=== PATIENT | female | born 1940 | race Caucasian/White ===

== ENCOUNTER 2016-06-17 15:22 | Inpatient (IN) | payer MEDICARE ==
[~2016-06-17] VITALS: Ht 162.6 cm; Wt 78.0 kg
[2016-06-17 15:25] VITALS: BP 201/83; PULSE 50; RESP 15; TEMP 97.9; O2SAT 94
[2016-06-17 15:49] VITALS: PULSE 55; RESP 15; O2SAT 98
[2016-06-17] MEDS ORDERED: ANSAID PO (15:54)
[2016-06-17] MEDS ORDERED: TYLETAB34 PO (15:54)
[2016-06-17] MEDS ORDERED: ROSU5 PO (15:54)
[2016-06-17] MEDS ORDERED: GABA600T PO (15:54)
[2016-06-17] MEDS ORDERED: [UNRECOGNIZED DRUG - CODE] PO (15:54)
[2016-06-17] MEDS ORDERED: PREV30CA11 PO (15:54)
[2016-06-17] MEDS ORDERED: TOPR25TA PO (15:56)
--- NOTE | 2016-06-17 15:59 | PD ---
HPI . Irregular heartbeat Chief Complaint: Cardiac Complaint Time Seen by Provider: 15:39 Travel History International Travel<30 days: No Contact w/Intl Traveler<30days: No Traveled to known affect area: No History of Present Illness HPI Patient presents along with her , who states that he is a physician, complaining of an irregular heartbeat today. She reports that she fell while was she was going to the bathroom. She had an irregular heartbeat at that time which apparently caused her to be very weak causing the fall. She and her then decided that she needed to come to the hospital to get checked. She became very weak and fell again in the garage on a concrete floor. She did strike her head. She did not lose consciousness. She and the state that she takes Eliquis when necessary for irregular heartbeat. She has had a normal heartbeat for the last 8 months and has not been taking the Eliquis. She took it today. In addition to the irregular heartbeat and near syncope with associated head contusion, her would like for her to be evaluated for ascites. He is also requesting evaluation for possible hypothyroidism. He is further requesting that she be evaluated for breast cancer or bladder cancer. He states that she can't urinate without pressing on her urethra. She is also complaining with her chronic neck pain. They are from [place], [place]. The patient's only complaint at this time is that she feels shaky. She no longer has the sensation of an irregular heartbeat. PFSH Past Medical History Hx Anticoagulant Therapy: Yes Atrial Fibrillation: Yes Cardiovascular Problems: Yes Medical other: Yes ("PLATLETS DONT WORK", CHRONIC NECK PAIN) ?: Not Social History Alcohol Use: Yes (2 oz every day ) Tobacco Use: No Substance Use: No Allergies-Medications (Allergen,Severity, Reaction): Coded Allergies: Lisinopril (Verified Allergy, Unknown, 06/17/16) SSRI-Serotonin Reuptake Inhib (Verified Allergy, Unknown, 06/17/16) Reported Meds & Prescriptions Reported Meds & Active Scripts Active Reported Eliquis (Apixaban) 2.5 Mg Tab 2.5 Mg PO BID Toprol XL (Metoprolol Succinate) 25 Mg Tab 12.5 Mg PO DAILY PRN [Ansaid] 100 Mg PO DAILY PRN Gabapentin 600 Mg Tab 600 Mg PO TID Crestor (Rosuvastatin Calcium) 5 Mg Tab 5 Mg PO DAILY Tylenol-Codeine #3 (Acetaminophen-Codeine) 300-30 mg Tab 1-2 Tab PO Q6H PRN Prevacid (Lansoprazole) 30 Mg Capdr 30 Mg PO DAILY Norpace (Disopyramide Phosphate) 100 Mg Cap 100 Mg PO Q6H Review of Systems Except as stated in HPI: all other systems reviewed are Neg General / Constitutional: Positive: Weight Gain (6 pounds) Eyes: No: Blurred Vision HENT: Positive: Other Cardiovascular: Positive: Palpitations (posterior scalp contusion) Respiratory: No: Shortness of Breath Gastrointestinal: Positive: Other (bloating) Musculoskeletal: Positive: Other (chronic neck pain) Neurologic: Positive: Weakness Physical Exam Narrative GENERAL: This is an elderly woman who is in no acute distress. SKIN: Warm and dry. She has a bruise on her left posterior shoulder. HEAD: Bruise to the right posterior scalp. Normocephalic. EYES: Pupils equal and round. ENT: No nasal bleeding or discharge. Mucous membranes pink and moist. NECK: Trachea midline. She has a pretty long vertical surgical scar over her C- spine. CARDIOVASCULAR: She sounds like she is in a sinus rhythm with PVCs. It sounds like she is having 2 sinus beats followed by a PVC. Harsh systolic murmur. RESPIRATORY: No accessory muscle use. Lungs are clear with full air movement throughout. GASTROINTESTINAL: Abdomen soft, non-tender, nondistended. MUSCULOSKELETAL: No obvious deformities. No edema. NEUROLOGICAL: Awake and alert. No obvious cranial nerve deficits. Motor grossly within normal limits. Normal speech. PSYCHIATRIC: Appropriate mood and affect; insight and judgment normal. Data Data Last Documented VS Vital Signs Date Time Temp Pulse Resp B/P Pulse Ox O2 Delivery O2 Flow Rate FiO2 06/17/16 18:49 40 17 194/76 96 Room Air 06/17/16 15:25 97.9 Orders Electrocardiogram (06/17/16 15:47) Ckmb (Isoenzyme) Profile (06/17/16 15:47) Complete Blood Count With Diff (06/17/16 15:47) Comprehensive Metabolic Panel (06/17/16 15:47) D-Dimer (06/17/16 15:47) Magnesium (Mg) (06/17/16 15:47) Prothrombin Time / Inr (Pt) (06/17/16 15:47) Act Partial Throm Time (Ptt) (06/17/16 15:47) Troponin I (06/17/16 15:47) Chest, Single Ap (06/17/16 15:47) Ecg Monitoring (06/17/16 15:47) Bilateral Bp Monitoring (06/17/16 15:47) Iv Access Insert/Monitor (06/17/16 15:47) Oximetry (06/17/16 15:47) Oxygen Administration (06/17/16 15:47) Sodium Chloride 0.9% Flush (Ns Flush) (06/17/16 16:00) Thyroid Stimulating Hormone (06/17/16 15:47) Free Thyroxine (T4) (06/17/16 15:47) Ct Brain W/O Iv Contrast(Rout) (06/17/16 16:28) Ct Abd/Pel W Iv Contrast(Rout) (06/17/16 16:47) CKMB (06/17/16 16:00) CKMB% (06/17/16 16:00) Iohexol 350 Inj (Omnipaque 350 Inj) (06/17/16 17:50) Sodium Chlor 0.9% 1000 Ml Inj (Ns 1000 M (06/17/16 18:30) Ct Pulmonary Angiogram (06/17/16 18:53) Enoxaparin Inj (Lovenox Inj) (06/17/16 19:00) Urinalysis - C+S If Indicated (06/17/16 19:00) Admit To Inpatient (06/17/16 ) Vital Signs (Adult) Q4H (06/17/16 19:23) Activity Oob With Assistance (06/17/16 19:23) Telescope Maintenance / Telemetry .CONTINUOUS (06/17/16 19:23) Intake + Output PURVI.QSHIFT (06/17/16 19:23) Diet Heart Healthy (06/18/16 Breakfast) Sodium Chlor 0.9% 1000 Ml Inj (Ns 1000 M (06/17/16 19:23) Sodium Chloride 0.9% Flush (Ns Flush) (06/17/16 19:30) Sodium Chloride 0.9% Flush (Ns Flush) (06/17/16 21:00) Ondansetron Inj (Zofran Inj) (06/17/16 19:30) Bisacodyl Supp (Dulcolax Supp) (06/17/16 19:30) Comprehensive Metabolic Panel (06/18/16 06:00) Complete Blood Count With Diff (06/18/16 06:00) Creatine Kinase (Cpk) (06/18/16 00:00) Creatine Kinase (Cpk) (06/18/16 06:00) Troponin I (06/18/16 00:00) Troponin I (06/18/16 06:00) Pharmacologic Contraindication (06/17/16 19:23) Acetaminophen (Tylenol) (06/17/16 19:30) Acetamin-Hydrocod 325-5 Mg ([place] 5-325 (06/17/16 19:30) Morphine Inj (Morphine Inj) (06/17/16 19:30) Inpatient Certification (06/17/16 ) Apixaban (Eliquis) (06/17/16 21:00) Gabapentin (Neurontin) (06/18/16 09:00) (Nf) Disopyramide (Norpace) (06/17/16 19:30) (Nf) Rosuvastatin (Crestor) (06/18/16 09:00) Labs Laboratory Tests Test 06/17/16 16:00 White Blood Count 6.8 TH/MM3 Red Blood Count 2.88 MIL/MM3 Hemoglobin 9.0 GM/DL Hematocrit 26.1 % Mean Corpuscular Volume 90.9 FL Mean Corpuscular Hemoglobin 31.5 PG Mean Corpuscular Hemoglobin 34.6 % Concent Red Cell Distribution Width 12.8 % Platelet Count 183 TH/MM3 Mean Platelet Volume 8.0 FL Neutrophils (%) (Auto) 66.7 % Lymphocytes (%) (Auto) 22.8 % Monocytes (%) (Auto) 8.8 % Eosinophils (%) (Auto) 1.1 % Basophils (%) (Auto) 0.6 % Neutrophils # (Auto) 4.5 TH/MM3 Lymphocytes # (Auto) 1.5 TH/MM3 Monocytes # (Auto) 0.6 TH/MM3 Eosinophils # (Auto) 0.1 TH/MM3 Basophils # (Auto) 0.0 TH/MM3 CBC Comment DIFF FINAL Differential Comment Prothrombin Time 11.0 SEC Prothromb Time International 1.0 RATIO Ratio Activated Partial 29.4 SEC Thromboplast Time D-Dimer Quantitative (PE/DVT) 1.80 MG/L FEU Sodium Level 119 MEQ/L Potassium Level 5.5 MEQ/L Chloride Level 85 MEQ/L Carbon Dioxide Level 24.7 MEQ/L Anion Gap 9 MEQ/L Blood Urea Nitrogen 25 MG/DL Creatinine 1.22 MG/DL Estimat Glomerular Filtration 43 ML/MIN Rate Random Glucose 84 MG/DL Calcium Level 8.7 MG/DL Magnesium Level 2.4 MG/DL Total Bilirubin 0.3 MG/DL Aspartate Amino Transf 38 U/L (AST/SGOT) Alanine Aminotransferase 38 U/L (ALT/SGPT) Alkaline Phosphatase 65 U/L Total Creatine Kinase 289 U/L Creatine Kinase MB 7.0 NG/ML Creatine Kinase MB % 2.4 % Troponin I 0.03 NG/ML Total Protein 7.0 GM/DL Albumin 3.7 GM/DL Free Thyroxine 0.83 NG/DL Thyroid Stimulating Hormone 3.940 uIU/ML [address] [place] [address] Medical Decision Making Medical Screen Exam Complete: Yes Emergency Medical Condition: Yes Medical Record Reviewed: Yes (unfortunately, this patient has no old records here.) Interpretation(s) I cannot really determine the etiology of her rhythm. It may be idioventricular at the computer is reading it as atrial fibrillation with a slow ventricular response she does not have any ST segment elevation or depression. She has no old EKGs for comparison. Differential Diagnosis My differential diagnosis of syncope includes but is not limited to cardiac arrhythmia, hypovolemia, anemia, neurological catastrophe, vasovagal response Narrative Course Patient presents for evaluation of an irregular heartbeat and extreme weakness causing to falls. No loss of consciousness. CBC has an H&H of 9.0 and 26.1. Chest x-ray is negative to the radiologist's interpretation. Chest x-ray was independently viewed by me. Chemistries are remarkable for sodium of 119, potassium 5.5, chloride of 85 and bicarbonate of 25. BUN/creat is 25/1.22. Cardiac enzymes are negative. Free T4 is 0.83 which is normal. TSH is 3.94 which is slightly elevated. D-dimer is 1.80. CT for PE has subsequently been ordered. Unfortunately, the patient has already been given IV contrast for abd/pelvic CT. Radiology has informed me that they cannot give the patient any more contrast today. She needs to be admitted for her hyponatremia anyway. She can be further evaluated for the elevated d-dimer in [address] head is negative. CT abdomen and pelvis is negative. Critical Care Narrative Aggregate critical care time was [-] minutes. Time to perform other separately billable procedures was not included in the critical care time. My time did not include minutes spent treating any other patients simultaneously or on activities that did not directly contribute to the patient's treatment. The services I provided to this patient were to treat and/or prevent clinically significant deterioration that could result in: Fatal cardiac dysrhythmia, cardiovascular collapse, neurological sequelae of an undiagnosed head injury I provided critical care services requiring my management, as noted below: Chart data review, documentation time, medication orders and management, vital sign assessments/reviewing monitor data, ordering and reviewing lab tests, ordering and interpreting/reviewing x-rays and diagnostic studies, care of the patient and discussion of the patient with the admitting physicians. Diagnosis Primary Impression: Near syncope Additional Impressions: Hyponatremia Hyperkalemia Elevated d-dimer Admitting Information Admitting Physician Requests: Admit Condition: Stable Suyapa Ortega MD Jun 17, 2016 15:59
[2016-06-17] MEDS ORDERED: SODIUM CHLORIDE 0.9% FLUSH 5 ML FLUSH IVF PRN (16:00)
[2016-06-17 16:17] LABS: AUTOMATED NEUTROPHIL # 4.5 TH/MM3 (1.8-7.7); BASOPHIL % 0.6 % (0.0-2.0); EOSINOPHIL # 0.1 TH/MM3 (0-0.4); EOSINOPHIL % 1.1 % (0.0-4.0); HEMATOCRIT 26.1 % (35.0-46.0); HEMO FLAGS DIFF FINAL; LYMPH % 22.8 % (9.0-44.0); LYMPHOCYTE # 1.5 TH/MM3 (1.0-4.8); MEAN CELL VOLUME 90.9 FL (80.0-100.0); MEAN CORPUSCULAR HEMOGLOBIN 31.5 PG (27.0-34.0); MEAN CORPUSCULAR HGB CONC 34.6 % (32.0-36.0); MONO % 8.8 % (0.0-8.0); NEUT % 66.7 % (16.0-70.0); PLATELET COUNT 183 TH/MM3 (150-450); RED BLOOD COUNT 2.88 MIL/MM3 (4.00-5.30); RED CELL DISTRIBUTION WIDTH 12.8 % (11.6-17.2); WHITE BLOOD COUNT 6.8 TH/MM3 (4.0-11.0)
--- NOTE | 2016-06-17 16:20 | RADRPT ---
EXAM DATE/TIME: 06/17/2016 16:02 [facility] COMPARISON: No previous studies available for comparison. INDICATIONS : Chest pain starting today MEDICAL HISTORY : None. SURGICAL HISTORY : None. ENCOUNTER: Initial ACUITY: 1 day PAIN SCORE: 5/10 LOCATION: Bilateral chest FINDINGS: A single view of the chest demonstrates the lungs to be symmetrically aerated without evidence of mas s, infiltrate or effusion. The cardiomediastinal contours are unremarkable. Osseous structures are intact. CONCLUSION: No acute disease. Mateo Becker MD on June 17, 2016 at 16:19 Board Certified Radiologist. This report was verified electronically.
[2016-06-17 16:35] LABS: APTT (PATIENT) 29.4 SEC (24.3-30.1)
[2016-06-17 16:48] LABS: ALT (GPT) 38 U/L (10-53); ANION GAP 9 MEQ/L (5-15); AST (GOT) 38 U/L (15-37); BICARBONATE 24.7 MEQ/L (21.0-32.0); BLOOD UREA NITROGEN 25 MG/DL (7-18); CHLORIDE 85 MEQ/L (98-107); GLOMERULAR FILTRATION RATE 43 ML/MIN (>89); MAGNESIUM 2.4 MG/DL (1.5-2.5); POTASSIUM 5.5 MEQ/L (3.5-5.1)
[2016-06-17 16:55] LABS: ALKALINE PHOSPHATASE 65 U/L (45-117); CREATINE KINASE 289 U/L (26-192); FREE T4 0.83 NG/DL (0.76-1.46); TOTAL BILIRUBIN ADULT 0.3 MG/DL (0.2-1.0)
[2016-06-17 17:02] LABS: SODIUM (NA) 119 MEQ/L (136-145)
[2016-06-17 17:10] VITALS: BP 117/79; PULSE 53; RESP 15; O2SAT 98
--- NOTE | 2016-06-17 17:48 | RADRPT ---
EXAM DATE/TIME: 06/17/2016 17:37 [facility] COMPARISON: No previous studies available for comparison. INDICATIONS : Fall with head trauma. RADIATION DOSE: 60.87 CTDIvol (mGy) MEDICAL HISTORY : Cardiovascular disease. SURGICAL HISTORY : Cervical laminectomy. ENCOUNTER: Initial ACUITY: 1 day PAIN SCALE: 0/10 LOCATION: cranial TECHNIQUE: Multiple contiguous axial images were obtained of the head. Using automated exposure control and adj ustment of the mA and/or kV according to patient size, radiation dose was kept as low as reasonably a chievable to obtain optimal diagnostic quality images. FINDINGS: CEREBRUM: The ventricles are normal for age. No evidence of midline shift, mass lesion, hemorrhage or acute in farction. No extra-axial fluid collections are seen. POSTERIOR FOSSA: The cerebellum and brainstem are intact. The 4th ventricle is midline. The cerebellopontine angle i s unremarkable. EXTRACRANIAL: The visualized portion of the orbits is intact. SKULL: The calvaria is intact. No evidence of skull fracture. Superficial soft tissue swelling hematoma pos terior high right parietal region towards the vertex CONCLUSION: Intact calvarium with normal intracranial contents. Mateo Becker MD on June 17, 2016 at 17:46 Board Certified Radiologist. This report was verified electronically.
[2016-06-17] MEDS ORDERED: IOHEXOL 350 MG/ML 10 ML VIAL (for RAD DIAG) IV ONE (17:50)
[2016-06-17] MEDS ORDERED: SODIUM CHLOR 0.9% 1000 ML INJ 1,000 ML IV ONE (18:30)
--- NOTE | 2016-06-17 18:33 | RADRPT ---
EXAM DATE/TIME: 06/17/2016 17:43 [facility] COMPARISON: No previous studies available for comparison. INDICATIONS : Abdominal pain and difficulty urinating IV CONTRAST: 71 cc Omnipaque 350 (iohexol) IV ORAL CONTRAST: No oral contrast ingested. RADIATION DOSE: 11.88 CTDIvol (mGy) MEDICAL HISTORY : Ascites. SURGICAL HISTORY : None documented. ENCOUNTER: Initial ACUITY: 1 day PAIN SCALE: 0/10 LOCATION: lower quadrant TECHNIQUE: Volumetric scanning of the abdomen and pelvis was performed. Using automated exposure control and ad justment of the mA and/or kV according to patient size, radiation dose was kept as low as reasonably achievable to obtain optimal diagnostic quality images. FINDINGS: CT Abdomen: The liver, spleen, pancreas, kidneys, adrenals are unremarkable. There is no evidence for any appreciable pathological adenopathy, free fluid, or bowel obstruction. CT pelvis: There is no evidence for mass, abscess formation, or any significant adenopathy within the pelvis. There is prominent fat bilaterally in the patient's thigh partially extending insinuating be tween muscular structures of no clinical significance. CONCLUSION: Essentially unremarkable study. Marilu Ellis MD on June 17, 2016 at 18:29 Board Certified Radiologist. This report was verified electronically.
[2016-06-17 18:49] VITALS: BP 194/76; PULSE 40; RESP 17; O2SAT 96
[2016-06-17] MEDS ORDERED: ENOXAPARIN SODIUM 80 MG/0.8 ML SYRINGE SQ ONE (19:00)
[2016-06-17] MEDS ORDERED: APIX2.5T PO (19:12)
--- NOTE | 2016-06-17 19:26 | HHI.HP ---
[facility] Service [facility] Primary Care Physician Non-Staff Admission Diagnosis Diagnoses: (1) Fall Diagnosis: Principal (2) Hyperkalemia Diagnosis: Principal (3) Hyponatremia Diagnosis: Principal (4) Elevated d-dimer Diagnosis: Principal (5) A-fib Diagnosis: Principal (6) Renal insufficiency Diagnosis: Principal Travel History International Travel<30 Days: No Contact w/Intl Traveler <30 Da: No Traveled to Known Affected Are: No History of Present Illness This is a 75-year-old female with a PMH of HTN and A. fib who was brought to the ER by after fall x2 earlier today. History provided mostly by who states he is an Internal Medicine doctor and is the one primarily managing her medical problems. 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 Per , pt had complaints of dizziness/lightheadedness earlier today, noted to have irregular pulse at which time he gave her a dose of Eliquis 2.5mg. Was walking to the car w/ her walker on her way to ER when her "legs gave out" and she had fall, + head trauma but no LOC. On arrival, BP 201/83, HR 50, O2 sat 94% on RA. Currently BP 179/79, HR 73. Chemistry essentially unremarkable. Hgb 9.0, baseline unknown. Na 119. K+ 5.5. Creatinine 1.22, no previous labs for comparison. Trop 0.03. CPK 289. TSH 3.940. D-Dimer 1.80. U/a negative. CT Head negative for acute findings. CXR negative. CT Abd/Pelvis requested by as pt had reported complaints of abd pain earlier, CT Abd/Pelvis negative. CTA Pulm ordered, however not completed as pt has already received contrast w/ CT Abd/Pelvis. CTA Pulm scheduled for tomorrow. Review of Systems Other ROS: 14 point review of systems otherwise negative. Past Family Social History Past Medical History PMH: HTN and A. fib Past Surgical History PAST SURGICAL HISTORY: Cervical Laminectomy, Bilateral Foot Surgery Allergies: Coded Allergies: Lisinopril (Verified Allergy, Unknown, 06/17/16) SSRI-Serotonin Reuptake Inhib (Verified Allergy, Unknown, 06/17/16) Family History PAST FAMILY HISTORY: Reviewed. No h/o DM or CAD Social History PAST SOCIAL HISTORY: Drinks 2 ounces of alcohol daily. Negative for tobacco or drugs. Physical Exam Vital Signs Vital Signs Date Time Temp Pulse Resp B/P Pulse Ox O2 Delivery O2 Flow Rate FiO2 06/17/16 18:49 40 17 194/76 96 Room Air 06/17/16 17:10 53 15 117/79 98 Room Air 06/17/16 15:49 98 Room Air 06/17/16 15:49 98 Room Air 06/17/16 15:49 55 15 98 Room Air 06/17/16 15:45 16 06/17/16 15:25 97.9 50 15 201/83 94 Physical Exam PE: GENERAL: Elderly white female in no acute distress. at bedside. HEENT: PERRLA, EOMI. No scleral icterus or conjunctival pallor. No lid lag or facial droop. CARDIOVASCULAR: Currently in NSR. Regular rate and rhythm. No obvious murmurs to auscultation. No chest tenderness to palpation. RESPIRATORY: No obvious rhonchi or wheezing. Clear to auscultation. Breath sounds equal bilaterally. GASTROINTESTINAL: Abdomen soft, non-tender, nondistended. BS normal. MUSCULOSKELETAL: Extremities without clubbing, cyanosis, or edema. No obvious deformities. NEUROLOGICAL: Awake, alert and oriented x4. No focal neurologic deficits. Moving both upper and lower extremities spontaneously. Laboratory Laboratory Tests Test 06/17/16 16:00 White Blood Count 6.8 Red Blood Count 2.88 Hemoglobin 9.0 Hematocrit 26.1 Mean Corpuscular Volume 90.9 Mean Corpuscular Hemoglobin 31.5 Mean Corpuscular Hemoglobin 34.6 Concent Red Cell Distribution Width 12.8 Platelet Count 183 Mean Platelet Volume 8.0 Neutrophils (%) (Auto) 66.7 Lymphocytes (%) (Auto) 22.8 Monocytes (%) (Auto) 8.8 Eosinophils (%) (Auto) 1.1 Basophils (%) (Auto) 0.6 Neutrophils # (Auto) 4.5 Lymphocytes # (Auto) 1.5 Monocytes # (Auto) 0.6 Eosinophils # (Auto) 0.1 Basophils # (Auto) 0.0 CBC Comment DIFF FINAL Differential Comment Prothrombin Time 11.0 Prothromb Time International 1.0 Ratio Activated Partial 29.4 Thromboplast Time D-Dimer Quantitative (PE/DVT) 1.80 Sodium Level 119 Potassium Level 5.5 Chloride Level 85 Carbon Dioxide Level 24.7 Anion Gap 9 Blood Urea Nitrogen 25 Creatinine 1.22 Estimat Glomerular Filtration 43 Rate Random Glucose 84 Calcium Level 8.7 Magnesium Level 2.4 Total Bilirubin 0.3 Aspartate Amino Transf 38 (AST/SGOT) Alanine Aminotransferase 38 (ALT/SGPT) Alkaline Phosphatase 65 Total Creatine Kinase 289 Creatine Kinase MB 7.0 Creatine Kinase MB % 2.4 Troponin I 0.03 Total Protein 7.0 Albumin 3.7 Free Thyroxine 0.83 Thyroid Stimulating Hormone 3.940 3rd Gen Result Diagram: 06/17/16 1600 06/17/16 1600 Assessment and Plan Problem List: (1) Fall ICD Code: W19.XXXA Status: Acute (2) Hyponatremia ICD Code: E87.1 Status: Acute (3) Hyperkalemia ICD Code: E87.5 Status: Acute (4) Elevated d-dimer ICD Code: R79.89 Status: Acute (5) Renal insufficiency ICD Code: N28.9 Status: Acute (6) A-fib ICD Code: I48.91 Status: Acute Assessment and Plan A/P: 1. Fall: x2 today, +head trauma, no LOC reported, lightheadedness/dizziness prior to fall. CT Head w/ no acute findings, images reviewed by me. Likely vasovagal. IVF for hydration. 2. Hyponatremia: Na 119, no previous labs for comparison. Not on medications to cause hyponatremia. IVF for hydration. Check U/a, check Urine Na/Cl/K. Repeat labs to monitor. No mental status changes. 3. Hyperkalemia: K+ 5.5. No EKG changes. Place on telemetry, repeat labs 4. Elevated D-dimer: Likely related to fall, no obvious infectious etiology. CTA Pulm ordered, however unable to complete as pt had CT Abd/Pelvis w/ contrast , CTA Pulm scheduled for am. No hypoxia, O2 sat normal. 5. Renal Insufficiency: Creatinine 1.22, no previous labs for comparison. Normal renal function per . IVF, repeat labs in am. 6. A-fib: H/o Ablation, off Eliquis for approx 8 months, noted to have irregular heartbeat by earlier today, given Eliquis 2.5mg x1 prior to ER. Will resume Eliquis and Norpace. Currently in NSR. Follows w/ [employer] in [place] where they live the majority of the year, no local [employer]. Will consult Cardiology for further recommendations. 7. DVT Prophylaxis: On Eliquis 8. Social work for d/c planning as needed. 9. Case discussed w/ ER physician at length. Physician Certification 2 Midnight Certification Type: Admission for Inpatient Services Order for Inpatient Services The services are ordered in accordance with Medicare regulations or non- Medicare payer requirements, as applicable. In the case of services not specified as inpatient-only, they are appropriately provided as inpatient services in accordance with the 2-midnight benchmark. Estimated LOS (days): 2 days is the estimated time the patient will need to remain in the hospital, assuming treatment plan goals are met and no additional complications. Post-Hospital Plan: Not yet determined Makenna Ferguson MD Jun 17, 2016 19:26
[2016-06-17] MEDS ORDERED: ACETAMINOPHEN 325 MG TAB PO PRN (19:30)
[2016-06-17] MEDS ORDERED: ONDANSETRON HCL 4 MG/2 ML VIAL IVP PRN (19:30)
[2016-06-17] MEDS ORDERED: BISACODYL 10 MG SUPP PR PRN (19:30)
[2016-06-17] MEDS ORDERED: MORPHINE SULFATE 4 MG/ML INJ IV PRN (19:30)
[2016-06-17] MEDS ORDERED: SODIUM CHLORIDE 0.9% FLUSH 5 ML FLUSH FLUSH PRN (19:30)
[2016-06-17 19:34] VITALS: BP 179/79; PULSE 73; RESP 16; O2SAT 97
[2016-06-17 19:45] LABS: BLOOD, URINE NEG (NEG); COMMENT (UR) CULT NOT INDICATED; CULTURE IF INDICATED CULT NOT INDICATED; GLUCOSE,URINE NEG (NEG); KETONE, URINE NEG (NEG); NITRITE,URINE NEG (NEG); PH, URINE 7.5 (5.0-8.5); SQUAMOUS EPITHELIAL CELL URINE 1 /hpf (0-5); URINE COLOR COLORLESS (YELLW/STRAW)
[2016-06-17 20:26] LABS: FREE T3 1.92 PG/ML (2.18-3.98); FREE T4 0.84 NG/DL (0.76-1.46)
[2016-06-17] MEDS: APIXABAN 2.5 MG TABLET PO SCH (21:50)
[2016-06-17] MEDS: ACETAMINOPHEN/HYDROcodone 325 MG/5 MG TAB PO PRN (21:51)
[2016-06-17] MEDS: SODIUM CHLORIDE 0.9% FLUSH 5 ML FLUSH FLUSH SCH (21:55)
[2016-06-17] MEDS: SODIUM CHLOR 0.9% 1000 ML INJ 1,000 ML IV SCH (21:57)
[2016-06-17 22:00] VITALS: BP 179/75; PULSE 79; RESP 19; TEMP 97.8; O2SAT 97
[2016-06-17] MEDS ORDERED: DISOPYRAMIDE 100 MG PO SCH (23:00)
[2016-06-18 00:15] VITALS: BP 158/82
[2016-06-18 00:53] LABS: BICARBONATE 25.1 MEQ/L (21.0-32.0); POTASSIUM 4.1 MEQ/L (3.5-5.1)
[2016-06-18 01:29] LABS: CKMB 7.1 NG/ML (0.5-3.6)
[2016-06-18 05:00] VITALS: BP 160/74; PULSE 80; RESP 19; TEMP 98.1; O2SAT 96
[2016-06-18] MEDS: SODIUM CHLOR 0.9% 1000 ML INJ 1,000 ML IV SCH (05:41)
[2016-06-18] MEDS: ACETAMINOPHEN/HYDROcodone 325 MG/5 MG TAB PO PRN ×2 (05:47→13:16)
[2016-06-18 07:28] LABS: AUTOMATED NEUTROPHIL # 2.3 TH/MM3 (1.8-7.7); BASOPHIL % 0.8 % (0.0-2.0); EOSINOPHIL # 0.1 TH/MM3 (0-0.4); EOSINOPHIL % 2.4 % (0.0-4.0); HEMATOCRIT 25.1 % (35.0-46.0); HEMO FLAGS DIFF FINAL; LYMPH % 34.4 % (9.0-44.0); LYMPHOCYTE # 1.5 TH/MM3 (1.0-4.8); MEAN CELL VOLUME 90.4 FL (80.0-100.0); MEAN CORPUSCULAR HEMOGLOBIN 31.7 PG (27.0-34.0); MEAN CORPUSCULAR HGB CONC 35.1 % (32.0-36.0); MONO % 9.7 % (0.0-8.0); NEUT % 52.7 % (16.0-70.0); PLATELET COUNT 157 TH/MM3 (150-450); RED BLOOD COUNT 2.77 MIL/MM3 (4.00-5.30); RED CELL DISTRIBUTION WIDTH 12.6 % (11.6-17.2); WHITE BLOOD COUNT 4.4 TH/MM3 (4.0-11.0)
[2016-06-18 07:45] LABS: ALKALINE PHOSPHATASE 65 U/L (45-117); ALT (GPT) 33 U/L (10-53); ANION GAP 8 MEQ/L (5-15); AST (GOT) 29 U/L (15-37); BICARBONATE 26.1 MEQ/L (21.0-32.0); BLOOD UREA NITROGEN 18 MG/DL (7-18); CHLORIDE 97 MEQ/L (98-107); CREATINE KINASE 265 U/L (26-192); GLOMERULAR FILTRATION RATE 70 ML/MIN (>89); POTASSIUM 4.5 MEQ/L (3.5-5.1); SODIUM (NA) 131 MEQ/L (136-145); TOTAL BILIRUBIN ADULT 0.3 MG/DL (0.2-1.0)
[2016-06-18 07:51] VITALS: BP 143/65; PULSE 67; RESP 18; TEMP 96.1; O2SAT 96
[2016-06-18 07:58] LABS: CKMB 7.2 NG/ML (0.5-3.6)
[2016-06-18 08:00] VITALS: PULSE 63
[2016-06-18] MEDS ORDERED: LORazepam 2 MG TAB PO PRN (08:45)
[2016-06-18] MEDS ORDERED: LORazepam 2 MG/ML VIAL IV PUSH PRN ×4 (08:45→09:00)
[2016-06-18] MEDS ORDERED: LORazepam 1 MG TAB PO PRN (08:45)
[2016-06-18] MEDS ORDERED: PANTOPRAZOLE SOD 40 MG DELAYED RELEASE TAB PO SCH (09:00)
[2016-06-18] MEDS ORDERED: THIAMINE HCL 100 MG TAB PO SCH (09:00)
[2016-06-18] MEDS ORDERED: ATORVASTATIN 10 MG TAB PO SCH (09:00)
[2016-06-18] MEDS ORDERED: MULTIVITAMINS/MINERALS THERAPEUTIC TAB PO SCH (09:00)
[2016-06-18] MEDS ORDERED: FLUMAZENIL 0.5 MG/5 ML VIAL IV PUSH PRN (09:00)
[2016-06-18] MEDS ORDERED: NON-FORMULARY DRUG (Rosuvastatin (Crestor) 5 MG) PO SCH (09:00)
[2016-06-18] MEDS ORDERED: HALOPERIDOL LACTATE 5 MG/ML AMP IM PRN (09:00)
[2016-06-18] MEDS ORDERED: FOLIC ACID 1 MG TAB PO SCH (09:00)
[2016-06-18] MEDS: SODIUM CHLORIDE 0.9% FLUSH 5 ML FLUSH FLUSH SCH (10:01)
[2016-06-18] MEDS: GABAPENTIN 300 MG CAP PO SCH ×3 (10:01→18:00)
[2016-06-18] MEDS: APIXABAN 2.5 MG TABLET PO SCH (10:01)
[2016-06-18 12:10] VITALS: BP 151/72; PULSE 79; RESP 18; TEMP 96.4; O2SAT 97
--- NOTE | 2016-06-18 12:49 | EKG ---
Date Performed: 06/17/2016 Time Performed: 15:50:23 PTAGE: 75 years EKG: ATRIAL FIBRILLATION WITH SLOW VENTRICULAR RESPONSE WITH ABERRANT CONDUCTION OR VENTRICULAR PREMATURE COMPLEXES MARKED LEFT AXIS DEVIATION INTRAVENTRICULAR CONDUCTION DELAY VOLTAGE CRITERIA FOR LVH ABNORMAL ECG INTERPRETATION BASED ON A DEFAULT AGE OF 40 YEARS NO PREVIOUS TRACING DOCTOR: Kody Jackson Interpretating Date/Time 06/18/2016 12:49:35
[2016-06-18] MEDS ORDERED: DISOPYRAMIDE 100 MG PO SCH (13:00)
--- NOTE | 2016-06-18 13:23 | HHI.PR ---
Subjective Remarks Follow-up Melody ledbetter. She complains of pain at the back of her head. She has been out of bed to the bathroom 5 times early secondary to loose stools. States her only symptom prior to the fall yesterday was she felt weak and was shaking. No loss of consciousness. Long discussion with . Alex RN Objective Vitals Vital Signs Date Time Temp Pulse Resp B/P Pulse Ox O2 Delivery O2 Flow Rate FiO2 06/18/16 12:10 96.4 79 18 151/72 97 06/18/16 08:00 63 06/18/16 07:51 96.1 67 18 143/65 96 06/18/16 07:39 18 06/18/16 05:00 98.1 80 19 160/74 96 06/18/16 00:15 158/82 06/17/16 22:00 97.8 79 19 179/75 97 06/17/16 19:34 73 16 179/79 97 Room Air 06/17/16 18:49 40 17 194/76 96 Room Air 06/17/16 17:10 53 15 117/79 98 Room Air 06/17/16 15:49 98 Room Air 06/17/16 15:49 98 Room Air 06/17/16 15:49 55 15 98 Room Air 06/17/16 15:45 16 06/17/16 15:25 97.9 50 15 201/83 94 I/O 06/17/16 06/17/16 06/17/16 06/18/16 06/18/16 06/18/16 07:00 15:00 23:00 07:00 15:00 23:00 Intake Total 600 ml 800 ml Output Total 700 ml Balance -100 ml 800 ml Intake Oral 600 ml 800 ml Output Urine Total 700 ml # Voids 5 4 # Bowel Movements 0 0 Result Diagram: 06/18/16 0629 06/18/16 0629 Imaging Last Impressions Abdomen/Pelvis CT 06/17/16 1647 Signed Impressions: Service Date/Time: Friday, June 17, 2016 17:43 - CONCLUSION: Essentially unremarkable study. KJustin Ellis MD Head CT 06/17/16 1628 Signed Impressions: Service Date/Time: Friday, June 17, 2016 17:37 - CONCLUSION: Intact calvarium with normal intracranial contents. Mateo Becker MD Chest X-Ray 06/17/16 1547 Signed Impressions: Service Date/Time: Friday, June 17, 2016 16:02 - CONCLUSION: No acute disease. Mateo Becker MD Objective Remarks GENERAL: Well-developed, well-nourished in no distress SKIN: Warm and dry. HEAD: Contusion occiput area EYES: Pupils equal and round. No scleral icterus. No injection or drainage. ENT: No nasal bleeding or discharge. Mucous membranes pink and moist. NECK: Trachea midline. No JVD. CARDIOVASCULAR: Regular rate and rhythm. Systolic murmur history of MVP per RESPIRATORY: No accessory muscle use. Clear to auscultation. Breath sounds equal bilaterally. GASTROINTESTINAL: Abdomen soft, non-tender, nondistended. MUSCULOSKELETAL: Extremities without clubbing, cyanosis, or edema. No obvious deformities. NEUROLOGICAL: Awake and alert. No obvious cranial nerve deficits. Motor grossly within normal limits. Five out of 5 muscle strength in the arms and legs. Normal speech. PSYCHIATRIC: Appropriate mood and affect; insight and judgment normal. Medications and IVs none A/P Problem List: (1) Fall ICD Code: W19.XXXA Status: Acute (2) Hyponatremia ICD Code: E87.1 Status: Acute (3) Hyperkalemia ICD Code: E87.5 Status: Resolved (4) Elevated d-dimer ICD Code: R79.89 Status: Acute (5) Renal insufficiency ICD Code: N28.9 Status: Acute (6) A-fib ICD Code: I48.91 Status: Chronic Assessment and Plan 1. Fall: x2 today, +head trauma, no LOC reported, weakness prior to fall. CT Head w/ no acute findings, images reviewed by me. Multifactorial from A. fib and hyponatremia. Patient has been ambulating with walker. Physical therapy evaluation. Fall precautions 2. Hyponatremia: Na 119, no previous labs for comparison. Not on medications to cause hyponatremia. Serum osmolality 270, urine osmolality 180 TSH 3.9. Asymptomatic. This could be water intoxication with history of alcohol use drinks 2 ounces of alcohol per day. Fluid restriction and monitor BMP. Seizure precautions 3. Hyperkalemia: K+ 5.5. No EKG changes. Place on telemetry, repeat labs shows normalization 4. Elevated D-dimer: Likely related to fall, no obvious infectious etiology. CTA Pulm ordered, however unable to complete as pt had CT Abd/Pelvis w/ contrast , CTA Pulm will be canceled. No hypoxia, O2 sat normal doubt pulmonary embolism. 5. HALLIE: Creatinine 1.22, no previous labs for comparison. Normal renal function per . Improved. Discontinue IV fluids. Avoid nephrotoxins 6. A-fib: H/o Ablation, off Eliquis for approx 8 months, noted to have irregular heartbeat by earlier today, given Eliquis 2.5mg x1 prior to ER. Will resume Eliquis and Norpace. Currently in NSR. Follows w/ [employer]visor in [place] where they live the majority of the year, no local [employer]. Will consult Cardiology for further recommendations. Last echocardiogram 2 months ago 7. Normocytic normochromic anemia status post negative colonoscopy a month ago. Obtain iron studies 8. Diarrhea. Lactinex. Obtain C. difficile 9. Slightly elevated TSH. Patient's insists on further workup which I recommended could be done outpatient. Follow-up with endocrinology. DVT Prophylaxis: On Eliquis Discharge Planning Home health care in 1-2 days Edward Garcia MD Jun 18, 2016 13:22
[2016-06-18] MEDS ORDERED: LACT PO (13:27)
[2016-06-18] MEDS ORDERED: VITA100T2 PO (13:27)
--- NOTE | 2016-06-18 13:27 | HHI.DCPOC ---
Discharge Care Plan Diagnosis: (1) A-fib Your Health Problems Are: Difficulty with ADL Exercise Tolerance Goals to Promote Your Health * To prevent worsening of your condition and complications * To maintain your health at the optimal level Directions to Meet Your Goals Take your medications as prescribed Follow your dietary instruction Follow activity as directed Keep your appointments as scheduled Take your immunizations and boosters as scheduled If your symptoms worsen call your PCP, if no PCP go to Urgent Care Center or Emergency Room Smoking is Dangerous to Your Health. Avoid second hand smoke Call the 24-hour hour crisis hotline for domestic abuse at Edward Garcia MD Jun 18, 2016 13:27
[2016-06-18] MEDS ORDERED: ACET300T2 PO (13:33)
--- NOTE | 2016-06-18 13:33 | HHI.FF ---
Face to Face Verification Diagnosis: (1) A-fib Physical Therapy Order: Evaluate and Treat, Improve ambulation, Strength and gait training I have seen patient Jennifer Urrutia on 06/18/16. My clinical findings support the need for the requested home health care services because: Ltd mobility - disease progression Deconditioned w/ increased weakness I certify that my clinical findings support that this patient is homebound because: Unsafe to leave home unassisted Edward Garcia MD Jun 18, 2016 13:33
[2016-06-18] MEDS ORDERED: DIAZ10TA PO (13:35)
[2016-06-18] MEDS ORDERED: VALS1TAB65 PO (13:37)
[2016-06-18 13:49] LABS: TRANSFERRIN IRON PROFILE 258 MG/DL (200-360)
[2016-06-18 13:52] LABS: FERRITIN 13 NG/ML (8-252)
--- NOTE | 2016-06-18 16:12 | MB ---
cc: RINA BANERJEE DATE OF CONSULTATION: 06/18/2016. HISTORY OF PRESENT ILLNESS: Ms. Urrutia is a 75-year-old female with prior history of hypertension, mitral valve prolapse and paroxysmal atrial fibrillation. She lives in [place], [place] and is visiting for four months a year. She developed irregular heart beat, dizziness, lightheadedness. She was using her walker. Her legs gave out and she fell and hit her head without loss of consciousness. She has not had any chest pain or shortness of breath. She had mild abdominal discomfort. PAST MEDICAL HISTORY: Her past medical history is positive for: 1. Paroxysmal atrial fibrillation. The patient has had infrequent episodes and the last was cardioverted about eight months ago. She has been on Norpace for the last six years. 2. There is no history of diabetes mellitus, dyslipidemia, coronary artery disease or CVA. 3. History of cervical laminectomy. 4. Bilateral foot surgery. ALLERGIES: 1. LISINOPRIL. 2. SSRIs (serotonin reuptake inhibitors). MEDICATIONS: Her medications include: 1. Prevacid. 2. Lactinex. 3. Disopyramide. 4. Neurontin. 5. Lipitor. 6. Folic acid. 7. Thiamine. 8. Multivitamin. 9. Eliquis 2.5 milligrams twice a day. SOCIAL HISTORY: The patient does not smoke. She drinks alcohol. She is . Her is an auto tune up mechanic. FAMILY HISTORY: Family history is positive for coronary artery disease in the mother. REVIEW OF SYSTEMS: The review of systems is otherwise negative. PHYSICAL EXAMINATION: VITAL SIGNS: Blood pressure 151/72, pulse 79 and regular. HEAD, EYES, EARS, NOSE, THROAT: Negative. NECK: 2+ carotid upstrokes, no bruits. LUNGS: Clear. HEART: Regular with a 1/6 systolic murmur at the apex. No gallops. ABDOMEN: Abdomen soft. No bruits. EXTREMITIES: Without edema. 2+ distal pulses. NEUROLOGIC: Grossly nonfocal. CARDIOLOGY STUDIES: EKG was reviewed and showed atrial fibrillation, PVCs, left axis, interventricular conduction delay, left ventricular hypertrophy. Telemetry now shows sinus rhythm. Echocardiogram in October of 2015 showed preserved left ventricular systolic function, mitral valve prolapse with moderate to severe mitral regurgitation, mild to moderate tricuspid regurgitation. Myocardial perfusion study showed no evidence of ischemia. LABS: Hemoglobin 8.8. Potassium 4.5, creatinine 0.8. CK 299, 265. Troponin 0.04 and 0.03. Free T4 is 0.84. Free T3 is 1.92. TSH is 3.94. DIAGNOSIS: 1. Paroxysmal atrial fibrillation. 2. Recent fall with head injury. 3. Mild renal insufficiency. 4. Hyponatremia. 5. Hypertension. DISPOSITION: Mrs. Urrutia will continue her current medical program. I discussed with her the potential side effects of disopyramide. Given the fact that she has taken the medication for the last six years and has infrequent episodes of atrial fibrillation, the and his wish to continue disopyramide at this time. I recommend to continue therapy for hypertension. She can be discharged home from the cardiac standpoint once she is stable. Her gives symptoms of hypothyroidism and her TSH is slightly elevated. He would like to start her on low-dose Synthroid. I will be happy to see her back for cardiology followup in our office after discharge. MD CESARIO Andrews/LUTHER /3:20 PM /3:59 PM WILLIAMS
[2016-06-18 16:15] VITALS: BP 154/75; PULSE 89; RESP 18; TEMP 96.5; O2SAT 95
[2016-06-18] MEDS ORDERED: LACTOBACILLUS ACIDOPHILUS TAB PO SCH (18:00)
[2016-06-19] MEDS ORDERED: LANSOPRAZOLE SOLUTAB 30 MG TAB PO SCH (09:00)
== END 2016-06-18 18:38 | disposition home or self-care (01) | DRG 309 ==
LOC: NEPA 15:22 → NEDA 19:31 → N05B 20:44
PROVIDERS: ADMIT Internal Medicine; ATTEND Internal Medicine
DX: I48.0 Paroxysmal atrial fibrillation (principal); E87.1 Hypo-osmolality and hyponatremia; E87.5 Hyperkalemia; D64.9 Anemia, unspecified; N28.9 Disorder of kidney and ureter, unspecified; I10 Essential (primary) hypertension; S00.83XA Contusion of other part of head, initial encounter; R55 Syncope and collapse; W18.30XA Fall on same level, unspecified, initial encounter; Y92.008 Other place in unspecified non-institutional (private) residence as the place of occurrence of the external cause; E03.9 Hypothyroidism, unspecified; I34.1 Nonrheumatic mitral (valve) prolapse; R79.89 Other specified abnormal findings of blood chemistry; R19.7 Diarrhea, unspecified; G89.29 Other chronic pain; M54.2 Cervicalgia
CPT/HCPCS: 70450; 71010; 74177; 80048; 80053; 81001; 82436; 82550; 82552; 82570; 82728; 83540; 83550; 83735; 83930; 83935; 84133; 84156; 84300; 84439; 84443; 84481; 84484; 85025; 85379; 85610; 85730; 93005; 96360; J7030; Q9967

== ENCOUNTER 2016-07-27 12:26 | Emergency (ER) | payer MEDICARE ==
[~2016-07-27] VITALS: Ht 162.6 cm; Wt 75.0 kg
[~2016-07-27 12:26] MED LIST: ACET300T2 PO; ANSAID PO; APIX2.5T PO; DIAZ10TA PO; GABA600T PO; LACT PO; PREV30CA11 PO; ROSU5 PO; TOPR25TA PO; TYLETAB34 PO; VALS1TAB65 PO; VITA100T2 PO; [UNRECOGNIZED DRUG - CODE] PO
[2016-07-27 12:29] VITALS: BP 139/65; PULSE 85; RESP 20; TEMP 98; O2SAT 96
--- NOTE | 2016-07-27 14:15 | PD ---
HPI Chief Complaint: Cold / Flu Symptoms Time Seen by Provider: 14:11 Travel History International Travel<30 days: Yes Contact w/Intl Traveler<30days: Yes Name of Country Traveled to: [place] Traveled to known affect area: Yes History of Present Illness HPI Patient is a 75-year-old female presenting to emergency for evaluation of shortness of breath, body aches, chills. Patient reports a fast heart rate this morning of 100. She also reports fever of 100.7 this morning and has taken Tylenol with Codeine. Patient's symptoms started last night. She denies any chest pain, nausea, vomiting, abdominal pain. Patient's is a physician, he states he gave her 12.5 mg of metoprolol this morning due to the tachycardia. Patient has a past medical history of mitral valve prolapse, atrial fibrillation, hyponatremia, hypertension. PFSH Past Medical History Hx Anticoagulant Therapy: Yes Arthritis: Yes Atrial Fibrillation: Yes Anxiety: Yes Heart Rhythm Problems: Yes Cancer: No Cardiovascular Problems: Yes Endocrine: No Genitourinary: Yes (SMALL RIGHT KIDNEY) Hypertension: Yes Immune Disorder: No Musculoskeletal: Yes Neurologic: Yes (HX CERVICAL LAMI) Reproductive: No Respiratory: No ?: Not Past Surgical History Body Medical Devices: SCREWS IN NECK AND FEET Social History Alcohol Use: Yes (everyday) Tobacco Use: No Substance Use: No Allergies-Medications (Allergen,Severity, Reaction): Coded Allergies: Lisinopril (Verified Allergy, Unknown, 07/27/16) SSRI-Serotonin Reuptake Inhib (Verified Allergy, Unknown, 07/27/16) Reported Meds & Prescriptions Reported Meds & Active Scripts Active Macrobid (Nitrofurantoin Monoh/Nitrofur Macro) 100 Mg Cap 100 Mg PO BID Reported Vitamin B-12 (Cyanocobalamin) 1,000 Mcg Tab 1,000 Mcg PO MONTHLY Valsartan 160 Mg Tab 80 Mg PO DAILY Diazepam 10 Mg Tab 5 Mg PO HS PRN Toprol XL (Metoprolol Succinate) 25 Mg Tab 12.5 Mg PO DAILY PRN [Ansaid] 100 Mg PO DAILY PRN Gabapentin 600 Mg Tab 600 Mg PO TID Crestor (Rosuvastatin Calcium) 5 Mg Tab 5 Mg PO DAILY Tylenol-Codeine #3 (Acetaminophen-Codeine) 300-30 mg Tab 1-2 Tab PO Q6H PRN Prevacid (Lansoprazole) 30 Mg Capdr 30 Mg PO DAILY Norpace (Disopyramide Phosphate) 100 Mg Cap 100 Mg PO Q8HR Review of Systems Except as stated in HPI: all other systems reviewed are Neg General / Constitutional: Positive: Fever, Chills HENT: No: Headaches, Lightheadedness Cardiovascular: No: Chest Pain or Discomfort Respiratory: Positive: Cough, Shortness of Breath Gastrointestinal: No: Nausea, Vomiting, Diarrhea, Abdominal Pain Musculoskeletal: Positive: Myalgias Neurologic: No: Dizziness, Syncope, Focal Abnormalities Physical Exam Narrative GENERAL: Well-developed, well-nourished, alert elderly female. Resting comfortably in no acute distress. SKIN: Warm and dry. HEAD: Atraumatic. Normocephalic. EYES: Pupils equal and round. No scleral icterus. No injection or drainage. ENT: No nasal bleeding or discharge. Mucous membranes pink and moist. NECK: Trachea midline. No JVD. CARDIOVASCULAR: Regular rate and rhythm. 3/6 systolic murmur appreciated. RESPIRATORY: No accessory muscle use. Coarse breath sounds in bases, no wheezing, increased work of breathing noted. GASTROINTESTINAL: Abdomen soft, non-tender, nondistended. Hepatic and splenic margins not palpable. MUSCULOSKELETAL: No obvious deformities. No clubbing. No cyanosis. No edema. NEUROLOGICAL: Awake and alert. No obvious cranial nerve deficits. Motor grossly within normal limits. Normal speech. PSYCHIATRIC: Appropriate mood and affect; insight and judgment normal. Data Data Last Documented VS Vital Signs Date Time Temp Pulse Resp B/P Pulse Ox O2 Delivery O2 Flow Rate FiO2 07/27/16 15:30 78 16 141/72 97 Room Air 07/27/16 12:29 98.0 Orders Electrocardiogram (07/27/16 14:09) Complete Blood Count With Diff (07/27/16 14:09) Comprehensive Metabolic Panel (07/27/16 14:09) Influenzae A/B Antigen (07/27/16 14:09) Chest, Pa & Lat (07/27/16 14:09) Magnesium (Mg) (07/27/16 14:09) Urinalysis - C+S If Indicated (07/27/16 14:09) B-Type Natriuretic Peptide (07/27/16 14:15) Ckmb (Isoenzyme) Profile (07/27/16 14:15) Troponin I (3/8/17 14:15) Urine Culture (07/27/16 14:15) CKMB (07/27/16 14:35) CKMB% (07/27/16 14:35) Levofloxacin 500 Mg Premix Inj (Levaquin (07/27/16 17:00) Labs Laboratory Tests Test 07/27/16 07/27/16 14:15 14:35 Urine Color LIGHT-YELLOW Urine Turbidity CLEAR Urine pH 8.0 Urine Specific [place] 1.010 Urine Protein NEG mg/dL Urine Glucose (UA) NEG mg/dL Urine Ketones NEG mg/dL Urine Occult Blood NEG Urine Nitrite NEG Urine Bilirubin NEG Urine Urobilinogen LESS THAN 2.0 MG/DL Urine Leukocyte Esterase LARGE Urine RBC 1 /hpf Urine WBC 64 /hpf Urine Squamous Epithelial 3 /hpf Cells Urine Hyaline Casts 1 /lpf Microscopic Urinalysis Comment CULTURE INDICATED White Blood Count 13.2 TH/MM3 Red Blood Count 3.12 MIL/MM3 Hemoglobin 9.4 GM/DL Hematocrit 28.5 % Mean Corpuscular Volume 91.2 FL Mean Corpuscular Hemoglobin 30.0 PG Mean Corpuscular Hemoglobin 32.9 % Concent Red Cell Distribution Width 14.7 % Platelet Count 133 TH/MM3 Mean Platelet Volume 8.4 FL Neutrophils (%) (Auto) 81.1 % Lymphocytes (%) (Auto) 12.7 % Monocytes (%) (Auto) 4.2 % Eosinophils (%) (Auto) 1.8 % Basophils (%) (Auto) 0.2 % Neutrophils # (Auto) 10.7 TH/MM3 Lymphocytes # (Auto) 1.7 TH/MM3 Monocytes # (Auto) 0.6 TH/MM3 Eosinophils # (Auto) 0.2 TH/MM3 Basophils # (Auto) 0.0 TH/MM3 CBC Comment DIFF FINAL Differential Comment Sodium Level 138 MEQ/L Potassium Level 4.5 MEQ/L Chloride Level 102 MEQ/L Carbon Dioxide Level 27.9 MEQ/L Anion Gap 8 MEQ/L Blood Urea Nitrogen 19 MG/DL Creatinine 0.79 MG/DL Estimat Glomerular Filtration 71 ML/MIN Rate Random Glucose 82 MG/DL Calcium Level 9.1 MG/DL Magnesium Level 1.3 MG/DL Total Bilirubin 0.4 MG/DL Aspartate Amino Transf 40 U/L (AST/SGOT) Alanine Aminotransferase 37 U/L (ALT/SGPT) Alkaline Phosphatase 65 U/L Total Creatine Kinase 335 U/L Creatine Kinase MB 7.4 NG/ML Creatine Kinase MB % 2.2 % Troponin I LESS THAN 0.02 NG/ML B-Type Natriuretic Peptide 101 PG/ML Total Protein 7.5 GM/DL Albumin 3.7 GM/DL MDM Medical Decision Making Medical Screen Exam Complete: Yes Emergency Medical Condition: Yes Interpretation(s) Vital Signs Date Time Temp Pulse Resp B/P Pulse Ox O2 Delivery O2 Flow Rate FiO2 07/27/16 12:29 98.0 85 20 139/65 96 Room Air Differential Diagnosis Viral syndrome versus influenza versus pneumonia versus bronchitis versus CHF versus other Narrative Course Patient is 75-year-old female presenting to the emergency department for evaluation of shortness of breath, body aches, fevers. Labs and imaging ordered and pending. Workup initiated in triage, care patient will be transferred to a provider when a medical bed is available Scripts Nitrofurantoin Monohydrate Macrocrystals (Macrobid)100 Mg [id number] Mg PO BID #10 CAP Ref 0 Prov:Jose Ceron MD 07/27/16 Elly Manning Jul 27, 2016 14:15
--- NOTE | 2016-07-27 15:09 | RADRPT ---
EXAM DATE/TIME: 07/27/2016 14:29 [facility] COMPARISON: CHEST SINGLE AP, June 17, 2016, 16:02. INDICATIONS : Short of breath, chills and fever. MEDICAL HISTORY : None. SURGICAL HISTORY : None. ENCOUNTER: Initial ACUITY: 2 days PAIN SCORE: 0/10 LOCATION: Bilateral chest FINDINGS: PA and lateral views of the chest demonstrate the lungs to be symmetrically aerated without evidence of mass, infiltrate or effusion. The cardiomediastinal contours are unremarkable. Osseous structure s are intact. CONCLUSION: No evidence of acute cardiopulmonary disease. Fitz Voss MD on July 27, 2016 at 15:07 Board Certified Radiologist. This report was verified electronically.
[2016-07-27 15:10] LABS: HEMATOCRIT 28.5 % (35.0-46.0); MEAN CELL VOLUME 91.2 FL (80.0-100.0); RED BLOOD COUNT 3.12 MIL/MM3 (4.00-5.30); WHITE BLOOD COUNT 13.2 TH/MM3 (4.0-11.0)
--- NOTE | 2016-07-27 15:10 | PD ---
HPI Chief Complaint: Cold / Flu Symptoms Time Seen by Provider: 15:09 Travel History International Travel<30 days: Yes Contact w/Intl Traveler<30days: Yes Name of Country Traveled to: [place] Traveled to known affect area: Yes History of Present Illness HPI 75-year-old female came to the emergency room with history of chills and fever since last night. She also has body aches. She received a flu shot for the winter. She is here with her and they are going for a cruise this weekend. She was seen by the provider in triage and blood work and urinalysis was ordered. Chemistry was pending but the total blood count was slightly elevated and UA was suggestive of UTI. I discussed this with the patient. Vital signs are stable otherwise. She is afebrile in the emergency room. [facility] Past Medical History Narrative Medical List of her past medical, surgical, social and family history is reviewed from the nursing note. Hx Anticoagulant Therapy: Yes Arthritis: Yes Atrial Fibrillation: Yes Anxiety: Yes Heart Rhythm Problems: Yes Cancer: No Cardiovascular Problems: Yes Endocrine: No Genitourinary: Yes (SMALL RIGHT KIDNEY) Hypertension: Yes Immune Disorder: No Musculoskeletal: Yes Neurologic: Yes (HX CERVICAL LAMI) Reproductive: No Respiratory: No ?: Not Past Surgical History Body Medical Devices: SCREWS IN NECK AND FEET Social History Alcohol Use: Yes (everyday) Tobacco Use: No Substance Use: No Allergies-Medications (Allergen,Severity, Reaction): Coded Allergies: Lisinopril (Verified Allergy, Unknown, 07/27/16) SSRI-Serotonin Reuptake Inhib (Verified Allergy, Unknown, 07/27/16) Comments List of allergies reviewed from the nursing note. Reported Meds & Prescriptions Reported Meds & Active Scripts Active Macrobid (Nitrofurantoin Monoh/Nitrofur Macro) 100 Mg Cap 100 Mg PO BID Reported Vitamin B-12 (Cyanocobalamin) 1,000 Mcg Tab 1,000 Mcg PO MONTHLY Valsartan 160 Mg Tab 80 Mg PO DAILY Diazepam 10 Mg Tab 5 Mg PO HS PRN Toprol XL (Metoprolol Succinate) 25 Mg Tab 12.5 Mg PO DAILY PRN [Ansaid] 100 Mg PO DAILY PRN Gabapentin 600 Mg Tab 600 Mg PO TID Crestor (Rosuvastatin Calcium) 5 Mg Tab 5 Mg PO DAILY Tylenol-Codeine #3 (Acetaminophen-Codeine) 300-30 mg Tab 1-2 Tab PO Q6H PRN Prevacid (Lansoprazole) 30 Mg Capdr 30 Mg PO DAILY Norpace (Disopyramide Phosphate) 100 Mg Cap 100 Mg PO Q8HR Narrative Medication List of medications reviewed from the nursing note. Review of Systems Except as stated in HPI: all other systems reviewed are Neg Physical Exam Narrative GENERAL: Awake, alert, no obvious distress SKIN: Warm and dry. HEAD: Atraumatic. Normocephalic. EYES: Pupils equal and round. No scleral icterus. No injection or drainage. ENT: No nasal bleeding or discharge. Mucous membranes pink and moist. NECK: Trachea midline. No JVD. Patient has a soft neck collar CARDIOVASCULAR: Regular rate and rhythm. No murmur appreciated. RESPIRATORY: No accessory muscle use. Clear to auscultation. Breath sounds equal bilaterally. GASTROINTESTINAL: Abdomen soft, non-tender, nondistended. Hepatic and splenic margins not palpable. MUSCULOSKELETAL: No obvious deformities. No clubbing. No cyanosis. No edema. NEUROLOGICAL: Awake and alert. No obvious cranial nerve deficits. Motor grossly within normal limits. Normal speech. PSYCHIATRIC: Appropriate mood and affect; insight and judgment normal. Data Data Last Documented VS Vital Signs Date Time Temp Pulse Resp B/P Pulse Ox O2 Delivery O2 Flow Rate FiO2 07/27/16 15:30 78 16 141/72 97 Room Air 07/27/16 12:29 98.0 Orders Electrocardiogram (07/27/16 14:09) Complete Blood Count With Diff (07/27/16 14:09) Comprehensive Metabolic Panel (07/27/16 14:09) Influenzae A/B Antigen (07/27/16 14:09) Chest, Pa & Lat (07/27/16 14:09) Magnesium (Mg) (07/27/16 14:09) Urinalysis - C+S If Indicated (07/27/16 14:09) B-Type Natriuretic Peptide (07/27/16 14:15) Ckmb (Isoenzyme) Profile (07/27/16 14:15) Troponin I (07/27/16 14:15) Urine Culture (07/27/16 14:15) CKMB (07/27/16 14:35) CKMB% (07/27/16 14:35) Levofloxacin 500 Mg Premix Inj (Levaquin (07/27/16 17:00) Labs Laboratory Tests Test 07/27/16 07/27/16 14:15 14:35 Urine Color LIGHT-YELLOW Urine Turbidity CLEAR Urine pH 8.0 Urine Specific [place] 1.010 Urine Protein NEG mg/dL Urine Glucose (UA) NEG mg/dL Urine Ketones NEG mg/dL Urine Occult Blood NEG Urine Nitrite NEG Urine Bilirubin NEG Urine Urobilinogen LESS THAN 2.0 MG/DL Urine Leukocyte Esterase LARGE Urine RBC 1 /hpf Urine WBC 64 /hpf Urine Squamous Epithelial 3 /hpf Cells Urine Hyaline Casts 1 /lpf Microscopic Urinalysis Comment CULTURE INDICATED White Blood Count 13.2 TH/MM3 Red Blood Count 3.12 MIL/MM3 Hemoglobin 9.4 GM/DL Hematocrit 28.5 % Mean Corpuscular Volume 91.2 FL Mean Corpuscular Hemoglobin 30.0 PG Mean Corpuscular Hemoglobin 32.9 % Concent Red Cell Distribution Width 14.7 % Platelet Count 133 TH/MM3 Mean Platelet Volume 8.4 FL Neutrophils (%) (Auto) 81.1 % Lymphocytes (%) (Auto) 12.7 % Monocytes (%) (Auto) 4.2 % Eosinophils (%) (Auto) 1.8 % Basophils (%) (Auto) 0.2 % Neutrophils # (Auto) 10.7 TH/MM3 Lymphocytes # (Auto) 1.7 TH/MM3 Monocytes # (Auto) 0.6 TH/MM3 Eosinophils # (Auto) 0.2 TH/MM3 Basophils # (Auto) 0.0 TH/MM3 CBC Comment DIFF FINAL Differential Comment Sodium Level 138 MEQ/L Potassium Level 4.5 MEQ/L Chloride Level 102 MEQ/L Carbon Dioxide Level 27.9 MEQ/L Anion Gap 8 MEQ/L Blood Urea Nitrogen 19 MG/DL Creatinine 0.79 MG/DL Estimat Glomerular Filtration 71 ML/MIN Rate Random Glucose 82 MG/DL Calcium Level 9.1 MG/DL Magnesium Level 1.3 MG/DL Total Bilirubin 0.4 MG/DL Aspartate Amino Transf 40 U/L (AST/SGOT) Alanine Aminotransferase 37 U/L (ALT/SGPT) Alkaline Phosphatase 65 U/L Total Creatine Kinase 335 U/L Creatine Kinase MB 7.4 NG/ML Creatine Kinase MB % 2.2 % Troponin I LESS THAN 0.02 NG/ML B-Type Natriuretic Peptide 101 PG/ML Total Protein 7.5 GM/DL Albumin 3.7 GM/DL MDM Medical Decision Making Medical Screen Exam Complete: Yes Emergency Medical Condition: Yes Medical Record Reviewed: Yes Differential Diagnosis Influenza, viral illness, pneumonia, UTI Narrative Course 5:06 PM patient is getting IV Levaquin. Chemistry came back and looks to be within acceptable limits. Chest x-rays negative. After the antibiotic patient will be discharged home with a prescription. She was given instructions to return to the ER and signs and symptoms to watch out for. Procedures EKG Prior to Arrival: No Diagnosis Primary Impression: UTI (urinary tract infection) Qualified Code: N39.0 - Urinary tract infection without hematuria, site unspecified Referrals: Primary Care Physician 3 days Departure Forms: Tests/Procedures Additional Instructions: Please return to the ER if the condition worsens or any other new concerns like vomiting and unable to hold the antibiotic down, just not feeling well. Take the medication as per the prescription direction. Follow-up with your primary care next week. Med/Other Pt SpecificInfo: Prescription(s) given Scripts Nitrofurantoin Monohydrate Macrocrystals (Macrobid)100 Mg [id number] Mg PO BID #10 CAP Ref 0 Prov:Jose Ceron MD 07/27/16 Disposition: 01 DISCHARGE HOME Condition: Stable Jose Ceron MD Jul 27, 2016 15:09 Jose Ceron MD Jul 27, 2016 15:09
[2016-07-27 15:11] LABS: AUTOMATED NEUTROPHIL # 10.7 TH/MM3 (1.8-7.7); BASOPHIL % 0.2 % (0.0-2.0); EOSINOPHIL # 0.2 TH/MM3 (0-0.4); EOSINOPHIL % 1.8 % (0.0-4.0); HEMO FLAGS DIFF FINAL; LYMPH % 12.7 % (9.0-44.0); LYMPHOCYTE # 1.7 TH/MM3 (1.0-4.8); MEAN CORPUSCULAR HGB CONC 32.9 % (32.0-36.0); MONO % 4.2 % (0.0-8.0); NEUT % 81.1 % (16.0-70.0); PLATELET COUNT 133 TH/MM3 (150-450); RED CELL DISTRIBUTION WIDTH 14.7 % (11.6-17.2)
[2016-07-27 15:12] LABS: BLOOD, URINE NEG (NEG); COMMENT (UR) CULTURE INDICATED; CULTURE IF INDICATED CULTURE INDICATED; GLUCOSE,URINE NEG (NEG); HYALINE CAST, URINE 1 /lpf (RARE); KETONE, URINE NEG (NEG); NITRITE,URINE NEG (NEG); SQUAMOUS EPITHELIAL CELL URINE 3 /hpf (0-5); URINE COLOR LIGHT-YELLOW (YELLW/STRAW)
[2016-07-27] MEDS ORDERED: VITA10002 PO (15:25)
[2016-07-27 15:30] VITALS: BP 141/72; PULSE 78; RESP 16; O2SAT 97
[2016-07-27 15:38] LABS: ALT (GPT) 37 U/L (10-53); ANION GAP 8 MEQ/L (5-15); BICARBONATE 27.9 MEQ/L (21.0-32.0); BLOOD UREA NITROGEN 19 MG/DL (7-18); CHLORIDE 102 MEQ/L (98-107); GLOMERULAR FILTRATION RATE 71 ML/MIN (>89); MAGNESIUM 1.3 MG/DL (1.5-2.5); POTASSIUM 4.5 MEQ/L (3.5-5.1); SODIUM (NA) 138 MEQ/L (136-145)
[2016-07-27 15:42] LABS: CREATINE KINASE 335 U/L (26-192)
[2016-07-27 15:45] LABS: ALKALINE PHOSPHATASE 65 U/L (45-117); AST (GOT) 40 U/L (15-37); TOTAL BILIRUBIN ADULT 0.4 MG/DL (0.2-1.0)
[2016-07-27 15:54] LABS: CKMB 7.4 NG/ML (0.5-3.6)
[2016-07-27] MEDS ORDERED: LEVOFLOXACIN 500 MG PREMIX INJ 100 ML IV ONE (17:00)
[2016-07-27] MEDS ORDERED: MACR100C2 PO (17:09)
--- NOTE | 2016-07-28 12:49 | EKG ---
Date Performed: 07/27/2016 Time Performed: 14:30:49 PTAGE: 75 years EKG: Sinus rhythm MODERATE INTRAVENTRICULAR CONDUCTION DELAY VOLTAGE CRITERIA FOR [facility] PT. IS NO LONGER IN ATRIAL FIBRI LLATION AND A CAPTURED BEAT IS NO LONGER PRESENT COMPARED TO THE PRIOR TRACING ABNORMAL ECG PREVIOUS TRACING : 06/17/2016 15.50 DOCTOR: Romeo Rene Interpretating Date/Time 07/28/2016 12:48:05
== END 2016-07-27 18:28 | disposition home or self-care (01) ==
LOC: NEPE 12:26
DX: N39.0 Urinary tract infection, site not specified (principal); B96.89 Other specified bacterial agents as the cause of diseases classified elsewhere; R94.31 Abnormal electrocardiogram [ECG] [EKG]; I34.1 Nonrheumatic mitral (valve) prolapse; I10 Essential (primary) hypertension; E87.1 Hypo-osmolality and hyponatremia; I48.91 Unspecified atrial fibrillation
CPT/HCPCS: 71020; 80053; 81001; 82550; 82552; 83735; 83880; 84484; 85025; 87086; 87804; 93005; 96374; 99285; J1956

== ENCOUNTER 2017-05-23 10:08 | Emergency (ER) | payer MEDICARE ==
[~2017-05-23] VITALS: Ht 162.6 cm; Wt 70.0 kg
[~2017-05-23 10:08] MED LIST changes: -ACET300T2 PO; -APIX2.5T PO; -LACT PO; +MACR100C2 PO; -PREV30CA11 PO; +PREV30CA36 PO; +VITA10002 PO; -VITA100T2 PO
[2017-05-23 10:12] VITALS: BP 180/98; PULSE 85; RESP 14; O2SAT 96
--- NOTE | 2017-05-23 10:25 | PD ---
HPI Chief Complaint: Fall Time Seen by Provider: 10:15 Travel History International Travel<30 days: No Contact w/Intl Traveler<30days: No Traveled to known affect area: No History of Present Illness HPI 76-year-old female presents the emergency Department with worsening generalized weakness with presyncopal events over the past week. Patient states she has fallen 4 times in the last week but denies specific injury. Patient has no complaints of pain, but has generalized weakness in both lower extremities and overall malaise. She denies fever, chills, nausea, vomiting, or diarrhea. Patient has history of hyponatremia in the past as well as hypo- thyroidism. Patient also has history of microcytic anemia in the past. Patient is here from the [facility] for the winter. Patient has required IV sodium in the past for low sodium with similar presentation. Patient has multiple allergies including citalopram, duloxetine, fluvoxamine, lisinopril, paroxetine, sertraline, and venlafaxine. PFSH Past Medical History Hx Anticoagulant Therapy: Yes Arthritis: Yes Atrial Fibrillation: Yes Anxiety: Yes Heart Rhythm Problems: Yes Cancer: No Cardiovascular Problems: Yes Endocrine: No Genitourinary: Yes (SMALL RIGHT KIDNEY) Hypertension: Yes Immune Disorder: No Musculoskeletal: Yes Neurologic: Yes (HX CERVICAL LAMI) Reproductive: No Respiratory: No Past Surgical History Body Medical Devices: SCREWS IN NECK AND FEET Social History Alcohol Use: Yes (everyday) Tobacco Use: No Substance Use: No Allergies-Medications (Allergen,Severity, Reaction): Coded Allergies: citalopram (Unverified Allergy, Unknown, 05/23/17) duloxetine (Unverified Allergy, Unknown, 05/23/17) fluvoxamine (Unverified Allergy, Unknown, 05/23/17) lisinopril (Unverified Allergy, Unknown, 05/23/17) paroxetine (Unverified Allergy, Unknown, 05/23/17) sertraline (Unverified Allergy, Unknown, 05/23/17) venlafaxine (Unverified Allergy, Unknown, 05/23/17) Reported Meds & Prescriptions Reported Meds & Active Scripts Active Reported Ibuprofen 800 Mg Tab 800 Mg PO Q6HR PRN Ferrous Sulfate 325 Mg (65 Mg Iron) Tablet 325 Mg PO DAILY Vitamin B-12 (Cyanocobalamin) 1,000 Mcg Tab 1,000 Mcg PO MONTHLY Valsartan 160 Mg Tab 80 Mg PO DAILY Diazepam 10 Mg Tab 5 Mg PO HS PRN Norpace (Disopyramide Phosphate) 100 Mg Cap 100 Mg PO Q8HR Review of Systems Except as stated in HPI: all other systems reviewed are Neg General / Constitutional: No: Fever Eyes: No: Visual changes HENT: Positive: Lightheadedness, No: Headaches, Vertigo, Sore Throat, Rhinitis , Rhinorrhea, Congestion, Nosebleed, Neck Stiffness, Neck Pain, Masses, Dental Difficulties, Earache Cardiovascular: Positive: Dyspnea on exertion, No: Chest Pain or Discomfort, Palpitations, Irregular Rhythm, Tachycardia Respiratory: No: Cough, Shortness of Breath Gastrointestinal: No: Nausea, Vomiting, Diarrhea, Abdominal Pain Genitourinary: No: Dysuria Musculoskeletal: No: Pain Skin: No Rash Neurologic: Positive: Weakness, Dizziness, Syncope, No: Focal Abnormalities, Coordination Problem, Tremor, Ataxia, Headache, Change in Mentation, Slurred Speech, Paresthesia, Incontinence, Seizures, Sensory Disturbance Psychiatric: No: Depression Endocrine: No: Polydipsia Hematologic/Lymphatic: No: Easy Bruising Physical Exam Narrative GENERAL: Patient appears in no obvious distress. SKIN: Warm and dry. Patient is somewhat pale. Normal turgor. Patient has old bruise below the left eye which she states is from one of her falls. She is not tender in this area. HEAD: Atraumatic. Normocephalic. Nontender with palpation. EYES: Pupils equal and round. No scleral icterus. No injection or drainage. ENT: No nasal bleeding or discharge. Mucous membranes pink and moist. Pharynx is clear. Airway is patent. NECK: Trachea midline. Supple, nontender, no palpable thyroid. CARDIOVASCULAR: Regular rate and rhythm. No murmurs gallops or rubs. RESPIRATORY: No accessory muscle use. Clear to auscultation. Breath sounds equal bilaterally. GASTROINTESTINAL: Abdomen soft, non-tender, nondistended. Hepatic and splenic margins not palpable. MUSCULOSKELETAL: Extremities without clubbing, cyanosis, or edema. No obvious deformities. NEUROLOGICAL: Awake and alert. No obvious cranial nerve deficits. Motor grossly within normal limits. Five out of 5 muscle strength in the arms and legs. Normal speech. PSYCHIATRIC: Appropriate mood and affect; insight and judgment normal. Data Data Last Documented VS Vital Signs Date Time Temp Pulse Resp B/P (MAP) Pulse Ox O2 Delivery O2 Flow Rate FiO2 05/23/17 10:52 70 20 160/74 (102) 96 Room Air Orders Orders Electrocardiogram (05/23/17 10:20) Complete Blood Count With Diff (05/23/17 10:20) Comprehensive Metabolic Panel (05/23/17 10:20) Magnesium (Mg) (05/23/17 10:20) Ckmb (Isoenzyme) Profile (05/23/17 10:20) Troponin I (05/23/17 10:20) Act Partial Throm Time (Ptt) (05/23/17 10:20) Prothrombin Time / Inr (Pt) (05/23/17 10:20) Urinalysis - C+S If Indicated (05/23/17 10:20) Chest, Single Ap (05/23/17 10:20) Ecg Monitoring (05/23/17 10:20) Iv Access Insert/Monitor (05/23/17 10:20) Oximetry (05/23/17 10:20) Sodium Chloride 0.9% Flush (Ns Flush) (05/23/17 10:30) Thyroid Stimulating Hormone (05/23/17 10:20) Sodium Chlorid 0.9% 500 Ml Inj (Ns 500 M (05/23/17 10:45) CKMB (05/23/17 10:45) CKMB% (05/23/17 10:45) Labs Laboratory Tests Test 05/23/17 10:45 White Blood Count 5.6 TH/MM3 Red Blood Count 3.12 MIL/MM3 Hemoglobin 10.6 GM/DL Hematocrit 31.4 % Mean Corpuscular Volume 100.7 FL Mean Corpuscular Hemoglobin 34.0 PG Mean Corpuscular Hemoglobin Concent 33.8 % Red Cell Distribution Width 13.7 % Platelet Count 175 TH/MM3 Mean Platelet Volume 7.5 FL Neutrophils (%) (Auto) 64.3 % Lymphocytes (%) (Auto) 24.4 % Monocytes (%) (Auto) 7.5 % Eosinophils (%) (Auto) 3.1 % Basophils (%) (Auto) 0.7 % Neutrophils # (Auto) 3.6 TH/MM3 Lymphocytes # (Auto) 1.4 TH/MM3 Monocytes # (Auto) 0.4 TH/MM3 Eosinophils # (Auto) 0.2 TH/MM3 Basophils # (Auto) 0.0 TH/MM3 CBC Comment DIFF FINAL Differential Comment Prothrombin Time 10.6 SEC Prothromb Time International Ratio 1.0 RATIO Activated Partial Thromboplast Time 27.7 SEC Blood Urea Nitrogen 20 MG/DL Creatinine 0.70 MG/DL Random Glucose 71 MG/DL Total Protein 7.4 GM/DL Albumin 3.4 GM/DL Calcium Level 9.1 MG/DL Magnesium Level 1.4 MG/DL Alkaline Phosphatase 64 U/L Aspartate Amino Transf (AST/SGOT) 71 U/L Alanine Aminotransferase (ALT/SGPT) 50 U/L Total Bilirubin 0.4 MG/DL Sodium Level 138 MEQ/L Potassium Level 5.2 MEQ/L Chloride Level 109 MEQ/L Carbon Dioxide Level 22.3 MEQ/L Anion Gap 7 MEQ/L Estimat Glomerular Filtration Rate 81 ML/MIN Total Creatine Kinase 252 U/L Creatine Kinase MB 9.5 NG/ML Creatine Kinase MB % 3.8 % Troponin I LESS THAN 0.02 NG/ML Thyroid Stimulating Hormone 3rd Gen 2.860 uIU/ML [facility] Medical Decision Making Medical Screen Exam Complete: Yes Emergency Medical Condition: Yes Medical Record Reviewed: Yes Differential Diagnosis Generalized weakness. Electrolyte imbalance. Hypothyroidism. Presyncope. Recurrent falls. UTI. Narrative Course Patient is medically stable at time of exam. Labs ordered including CBC, CMP, T3, magnesium, cardiac panel, and urinalysis. IV access is obtained patient is given 500 mg normal saline bolus. EKG and chest x-ray are ordered. EKG shows sinus rhythm without significant ST-T changes CBC shows mild anemia but improved from previous. CMP is unremarkable except potassium of 5.2. TSH is normal. Urinalysis was canceled as patient refuses. Patient is felt stable for discharge home with no significant findings on her labs today. Patient is encouraged to use her walker for ambulation at all times. Patient can follow up if symptoms worsen as needed. Diagnosis Primary Impression: Near syncope Additional Impression: Fall Qualified Codes: W19.XXXA - Unspecified fall, initial encounter Additional Instructions: Patient is felt stable for discharge home with no significant findings on her labs today. Patient is encouraged to use her walker for ambulation at all times. Patient can follow up if symptoms worsen as needed. Med/Other Pt SpecificInfo: No Change to Meds Disposition: DISCHARGE HOME Condition: Stable Ozzy,Alex F. PA May 23, 2017 10:25
[2017-05-23] MEDS ORDERED: SODIUM CHLORIDE 0.9% FLUSH 10 ML FLUSH IVF PRN (10:30)
[2017-05-23 10:35] VITALS: O2SAT 96
[2017-05-23] MEDS ORDERED: SODIUM CHLORID 0.9% 500 ML INJ 500 ML IV ONE (10:45)
[2017-05-23 10:52] VITALS: BP 160/74; PULSE 70; RESP 20; O2SAT 96
[2017-05-23] MEDS ORDERED: FERR325T18 PO (10:54)
[2017-05-23] MEDS ORDERED: IBUP1TAB7 PO (10:54)
[2017-05-23 11:25] LABS: AUTOMATED NEUTROPHIL # 3.6 TH/MM3 (1.8-7.7); BASOPHIL % 0.7 % (0.0-2.0); EOSINOPHIL # 0.2 TH/MM3 (0-0.4); EOSINOPHIL % 3.1 % (0.0-4.0); HEMATOCRIT 31.4 % (35.0-46.0); HEMOGLOBIN 10.6 GM/DL (11.6-15.3); LYMPH % 24.4 % (9.0-44.0); LYMPHOCYTE # 1.4 TH/MM3 (1.0-4.8); MEAN CELL VOLUME 100.7 FL (80.0-100.0); MEAN CORPUSCULAR HGB CONC 33.8 % (32.0-36.0); MEAN PLATELET VOLUME 7.5 FL (7.0-11.0); MONO % 7.5 % (0.0-8.0); MONOCYTE # 0.4 TH/MM3 (0-0.9); NEUT % 64.3 % (16.0-70.0); PLATELET COUNT 175 TH/MM3 (150-450); RED BLOOD COUNT 3.12 MIL/MM3 (4.00-5.30); RED CELL DISTRIBUTION WIDTH 13.7 % (11.6-17.2); WHITE BLOOD COUNT 5.6 TH/MM3 (4.0-11.0)
[2017-05-23 11:35] LABS: PROTHROMBIN TIME - PATIENT 10.6 SEC (9.8-11.6)
[2017-05-23 11:49] LABS: ALBUMIN 3.4 GM/DL (3.4-5.0); ALKALINE PHOSPHATASE 64 U/L (45-117); ALT (GPT) 50 U/L (10-53); AST (GOT) 71 U/L (15-37); BICARBONATE 22.3 MEQ/L (21.0-32.0); BLOOD UREA NITROGEN 20 MG/DL (7-18); CALCIUM 9.1 MG/DL (8.5-10.1); CHLORIDE 109 MEQ/L (98-107); GLOMERULAR FILTRATION RATE 81 ML/MIN (>89); GLUCOSE,RANDOM 71 MG/DL (74-106); MAGNESIUM 1.4 MG/DL (1.5-2.5); SODIUM (NA) 138 MEQ/L (136-145); TOTAL BILIRUBIN ADULT 0.4 MG/DL (0.2-1.0); TOTAL PROTEIN 7.4 GM/DL (6.4-8.2); TROPONIN I LESS THAN 0.02 NG/ML (0.02-0.05)
--- NOTE | 2017-05-23 12:03 | RADRPT ---
EXAM DATE/TIME: 05/23/2017 11:12 [facility] COMPARISON: CHEST SINGLE AP, June 17, 2016, 16:02. INDICATIONS : Syncope. falling a lot lately. MEDICAL HISTORY : atrial fibrillation, mitral valve prolapse SURGICAL HISTORY : None. ENCOUNTER: Initial ACUITY: 1 week PAIN SCORE: 0/10 LOCATION: Bilateral chest FINDINGS: The cardiac silhouette is enlarged in transverse diameter. The lungs are free of acute parenchymal op acity. No effusions are identified. CONCLUSION: Cardiomegaly. No acute pulmonary disease. Kody Purdy MD on May 23, 2017 at 12:01 Board Certified Radiologist. This report was verified electronically.
--- NOTE | 2017-05-23 17:25 | EKG ---
Date Performed: 05/23/2017 Time Performed: 10:43:56 PTAGE: 76 years EKG: Sinus rhythm BORDERLINE LEFT AXIS DEVIATION POSSIBLE LEFT VENTRICULAR HYPERTROPHY ABNORMAL ECG PREVIOUS TRACING : 07/27/2016 14.30 Compared to prior tracing no significant change DOCTOR: Lyudmila Fuentes Interpretating Date/Time 05/23/2017 17:24:57
== END 2017-05-23 12:30 | disposition home or self-care (01) ==
LOC: NEPD 10:08
DX: R55 Syncope and collapse (principal); I10 Essential (primary) hypertension
CPT/HCPCS: 71045; 80053; 82550; 82552; 83735; 84443; 84484; 85025; 85610; 85730; 93005; 96360; 99285; J7040

== ENCOUNTER → 2017-06-02 | Outpatient (CLI) | payer MEDICARE ==
[~2017-06-02] MED LIST changes: -ANSAID PO; +FERR325T18 PO; -GABA600T PO; +IBUP1TAB7 PO; -MACR100C2 PO; -PREV30CA36 PO; -ROSU5 PO; -TOPR25TA PO; -TYLETAB34 PO
--- NOTE | 2017-06-03 14:53 | EKG ---
Date Performed: 06/02/2017 Time Performed: 14:48:26 PTAGE: 76 years EKG: Sinus rhythm WITH OCCASIONAL VENTRICULAR PREMATURE COMPLEXES BORDERLINE LEFT AXIS DEVIATION LEFT VENTRICULAR HYPE RTROPHY AND ST-T CHANGE ABNORMAL ECG PREVIOUS TRACING : 05/23/2017 10.43 Repolarization changes in aVL new since the prior tracing. DOCTOR: Romeo Rene Interpretating Date/Time 06/03/2017 14:52:19
== END ==
LOC: HCAV 14:37
DX: R00.2 Palpitations (principal); R94.31 Abnormal electrocardiogram [ECG] [EKG]
CPT/HCPCS: 93005